=== PATIENT | male | born 1950 | race Caucasian/White ===

== ENCOUNTER 2018-09-17 09:47 | Inpatient (IN) | payer MEDICARE ==
[~2018-09-17] VITALS: Ht 177.8 cm; Wt 92.1 kg
[2018-10-26] VITALS (11 sets, daily range): BP systolic 128–146; BP diastolic 65–778; PULSE 62–94; TEMP 97.9–99
--- NOTE | 2018-10-26 09:50 | NUR ---
Patient brought back to bay [facility], steady on feet. Alert and oriented x4. Vital signs stable. Heart sounds regular, lung sounds clear, bowel sounds active. Consents reviewed and signed, all questions answered. Warm blanket provided. IV started to right hand, lab in room to obtain sample. IV fluids infusing WNL. Damion and daughter Rhona in room. Call orozco within reach, all safety measures maintained. Will continue to monitor.
[2018-10-26] MEDS ORDERED: ZANTAC 150MG T150 MG PO (11:16)
[2018-10-26] MEDS ORDERED: MYSOLINE 5050 MG/TAB PO (11:16)
[2018-10-26] MEDS ORDERED: TENORMIN 5050 MG/TAB PO (11:17)
[2018-10-26] MEDS ORDERED: COZAAR 50MG50 MG/TAB PO (11:17)
--- NOTE | 2018-10-26 19:19 | NUR ---
Patient resting in bed. He feels the urge to have bm or gas pain, patient was assisted to bathroom, he did not have BM or pass flatus. He did get nauseated while up, patient medicated with zofran. [place] provided.no emesis. Eras protcol follwed. He has had a few ice chips. Ivf per orders to Right hand. Scds ble. Vijay to bulb suction. Kinsey to DD, marginal urine output. Bedside report to night nurse.
--- NOTE | 2018-10-26 20:00 | NUR ---
Report received. Assumed care for hourly shift manager. Assessment complete. VS stable. Has been up to the bathroom for bowel movement, has only passed gas. Kinsey cath woth reddish colored urine. Tolerating PO. Denies pain. Family at bedside. Plan of care discussed-denies questions or concerns. Encouraged to call for needs. WIll monitor.
--- NOTE | 2018-10-26 21:00 | NUR ---
Post op vitals complete and have remained WNL. Up to ambulate now approx 150 feet. Tolerated well. Back to bed-SCDs on-denies pain. Encouraged to call for questions or concerns. Verbalizes understanding. WIll monitior.
[2018-10-27 04:21] VITALS: BP 136/72; PULSE 80; TEMP 98.7
--- NOTE | 2018-10-27 06:12 | NUR ---
Rested well this shift. MUNIR drain with total of 60mls output-red blood. Kinsey cath with clear yellow urine. Denies pain. VS have been stable. Denies needs at this time. Will monitor.
[2018-10-27 07:30] LABS: BASO % 0.2 % (0.0-2.0); EOS % 0.1 % (0-4.0); GRAN # 8.4 (1.4-6.5); GRAN % 73.9 % (42.2-75.2); HEMATOCRIT 38.1 % (42.0-52.0); HEMOGLOBIN 12.7 g/dl (13.5-18.0); LYMPH # 1.7 (1.2-3.4); MEAN CELL VOLUME 85 fl (80.0-100.0); MEAN CORPUSCULAR HEMOGLOBIN 28 pg (27.0-31.0); MEAN CORPUSCULAR HGB CONC 33 g/dl (33.0-37.0); MEAN PLATELET VOLUME 10.3 fl (7.4-10.4); MONO # 1.2 (0.1-0.6); MONO % 10.4 % (1.7-9.3); PLATELET COUNT 248 K/mm3 (130-400); RED BLOOD COUNT 4.51 M/mm3 (4.20-5.60); REDCELL DISTRIBUTION WIDTH-CV 13.2 % (11.5-14.5)
[2018-10-27 07:46] LABS: CALCIUM 8.8 mg/dL (8.4-10.2); CREATININE, serum 1.08 (0.66-1.25); POTASSIUM 3.9 mmol/L (3.4-5.0)
[2018-10-27 08:23] VITALS: BP 131/77; PULSE 82; TEMP 98.5
--- NOTE | 2018-10-27 10:35 | NUR ---
SW met with the patient to discuss a discharge plan. The pt lives in [place] with his Viv and their son Warren. The pt has a walker and reports independence with ADLs. The pt's PCP is Dr. Jayy Morales and pt receives his medications from [facility] in with no difficulties. The pt does not have advanced directives in the EMR but reports he did turn them in upon admisssion and designatehis Viv as DPOA-HC. The pt plans to return home upon discharge. There are no additional needs at this time.
--- NOTE | 2018-10-27 10:55 | NUR ---
Initial visit; Patient thanked [employer] Shop Supervisor for looking in on him offering him prayer and God's blessings.
--- NOTE | 2018-10-27 11:00 | NUR ---
Patient is doing well this am. He has been up walking in the hallways. Urine is yellow anc clear. Reminded patient to continue to drink water. Minimal complaints of lower abdominal pain. No complaints of nausea. Patient is tolerating general diet well. No other changes at this time. Call light within reach.
[2018-10-27 11:33] VITALS: BP 130/75; PULSE 80; TEMP 98.8
[2018-10-27 16:02] VITALS: BP 123/77; PULSE 80; TEMP 97.9
--- NOTE | 2018-10-27 19:30 | NUR ---
Patient did well this afternoon. He is getting into the shower at this time. No complaints of nausea. MUNIR discontinued this afternoon. Patient has started to pass flatus. He has been up ambulating several times in the hallways today. No complaints of nausea. No other changes at this time. Call light within reach.
[2018-10-27 19:57] VITALS: BP 132/82; PULSE 83; TEMP 98.2
--- NOTE | 2018-10-27 20:00 | NUR ---
Assumed care for clinical quality analyst. Assessment complete. VS stable. Denies pain. UP ambulating in hallway with walker. Tolerating well. Wanting to take a shower. IV wrapped. LAP sites x5 to abdomen-edges well approximated. Denies needs. WIll nonitor.
[2018-10-27 23:00] VITALS: BP 138/82; PULSE 72; TEMP 98.2
[2018-10-28 04:20] VITALS: BP 145/91; PULSE 63; TEMP 97.9
--- NOTE | 2018-10-28 07:00 | NUR ---
Report received from MATT Veliz. pT in bed resting, ordering breakfast, denies needs, will cotninue to karen.
[2018-10-28 08:26] VITALS: BP 148/94; PULSE 72; TEMP 98
--- NOTE | 2018-10-28 09:11 | NUR ---
Assessment charte.d pt has had a BM this am. Feeling well, passing gas. Taking PO well. Lap sites are well approximated with glue. INT to RF. Catheter draining yellow clear urine to DD at side of bed. Will do cath care teaching shortly and continue to monitor.
--- NOTE | 2018-10-28 12:57 | NUR ---
Discharge teachingcompleted at this time. PT received f/u appointment information, they will call tomorrow iwht a follow up from Dr. Piper office. INT dc'd, tip intact. Pt sent home with 32 oz leg bag, new larger bag for at night, extra stickers for leg, alcohol wipes for cleaning. Pt instruct provided regarding how to transfer, use leg bag, and care for rubin. discharge packet reviewed, answered all questions. Called scripts into [facility] per family request. Pt escorted out by myself wearing leg bag. Left with all belongings, and son to drive home. Criteria met.
== END 2018-10-28 13:00 | disposition home or self-care (01) | DRG 708 ==
LOC: INPTSU 10-26 09:31 → SURG 10-26 12:30
PROVIDERS: ADMIT Urology
PROC: 07TC4ZZ Resection of Pelvis Lymphatic, Percutaneous Endoscopic Approach (ICD-10-PCS; 2018-10-26)
PROC: 8E0W4CZ Robotic Assisted Procedure of Trunk Region, Percutaneous Endoscopic Approach (ICD-10-PCS; 2018-10-26)
PROC: 0VT04ZZ Resection of Prostate, Percutaneous Endoscopic Approach (ICD-10-PCS; principal; 2018-10-26 12:30)
DX: C61 Malignant neoplasm of prostate (principal); K21.9 Gastro-esophageal reflux disease without esophagitis; N40.0 Benign prostatic hyperplasia without lower urinary tract symptoms; E78.5 Hyperlipidemia, unspecified; I10 Essential (primary) hypertension; R25.1 Tremor, unspecified
CPT/HCPCS: A9284; J0690; J1100; J1885; J2405; J2704; J3010; J7120